=== PATIENT | male | born 1995 | race Two or more races ===

== ENCOUNTER 2019-10-23 23:56 | Emergency (ER) | payer MEDICAID, OTHER ==
[~2019-10-23] VITALS: Ht 172.7 cm; Wt 98.4 kg
[2019-10-24 01:04] LABS: Urine Bacteria NONE SEEN /hpf (None Seen); Urine Blood Negative /uL (Negative); Urine Specific Gravity 1.014 (1.001-1.035); Urine WBC <1 /hpf (0 - 3)
[2019-10-24 01:39] VITALS: BP 151/95
[2019-10-24] MEDS ORDERED: cefTRIAXone SOD 1,000 MG VL IM ONE (02:30)
[2019-10-24] MEDS ORDERED: cefTRIAXone SODIUM 250 MG VL IM ONE (02:30)
== END 2019-10-24 02:40 | disposition home or self-care (01) ==
LOC: ER 23:58
DX: N45.1 Epididymitis (principal); N43.3 Hydrocele, unspecified; N50.3 Cyst of epididymis
CPT/HCPCS: 76870; 81001; 96372; 99284; J0696